=== PATIENT | female | born 1955 | race Caucasian/White ===

== ENCOUNTER 2022-09-05 13:45 | Outpatient (REF) | payer MEDICARE, SELFPAY ==
--- NOTE | ~2022-09-05 | XR_ITS ---
EXAMINATION: XR LUMBOSACRAL SPINE WITH OBLIQUES CLINICAL INFORMATION: Lumbago with sciatica. COMPARISON: None available. TECHNIQUE: AP and lateral (neutral, flexion and extension) views of the lumbar spine and lateral view of the lumbosacral junction. FINDINGS: Vertebral body heights are normal. There is slight upper lumbar levoscoliosis. There has been a prior posterior fusion extending from L2-L3 through L4-L5, with intact posterior fixator rods, pedicular screws and disc spaces. A further disc spacer is seen at L4-L5. There is marked disc space narrowing at L5-S1. No acute fracture or spondylolisthesis is seen. There is multi-level thoracolumbar spondylosis and facet arthropathy. There are abdominal and pelvic surgical clips. XR/XR lumbar spine 4V min IMPRESSION: There is well-maintained alignment status-post L2-L3 through L4-L5 posterior fusions and discectomies. No hardware failure or loosening is seen.
== END 2022-09-05 13:46 | disposition home or self-care (01) ==
LOC: HO.HOSX 13:45
PROVIDERS: PCP Family Medicine; Visit Provider Neurological Surgery
DX: M54.40 Lumbago with sciatica, unspecified side (principal); M43.26 Fusion of spine, lumbar region
CPT/HCPCS: 72110; 99212

== ENCOUNTER 2023-03-07 12:41 | Outpatient (AMB) | payer MEDICARE, SELFPAY ==
--- NOTE | 2023-03-07 12:59 | A.SPINEOV_ITS ---
Intake Intake Visit Reasons: 6 month f/u Intake Note: Mrs. Mccarty is here today for her 6mo follow up. 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 She is 6 months status post minimally invasive L2-3 and L3-4 lumbar fusion for back pain and neurogenic claudication. Her neurogenic claudication symptoms have disappeared. Unfortunately, the back pain persists. I made her aware that back pain caused by spinal stenosis is hard to treat surgically. I will repeat an MRI of the sunday mbar spine to make sure there are no other surgical causes for her ongoing back pain and otherwise I will refer to pain management to see if she is a candidate for a sprint device. The patient will call for the MRI results and subsequent plan. I spent 20 minutes in this consult for preparation, discussing plan of care and ordering MRI. Luis Kaur MD, PhD Spine Fellowship Trained Neurosurgeon Director, [facility] Orders: Orders MR cervical spine wo con Today M43.26 - Fusion of spine, lumbar region Coding Level of Care Code Est Pt Level 3 (49121) Diagnoses Fusion of lumbar spine M43.26 Back pain M54.9
== END 2023-03-07 13:36 | disposition home or self-care (01) ==
PROVIDERS: PCP Family Medicine; Visit Provider Neurological Surgery
DX: M43.26 Fusion of spine, lumbar region (principal); M54.9 Dorsalgia, unspecified
CPT/HCPCS: 99213

== ENCOUNTER → 2023-03-07 12:41 | Outpatient (BNVA) | payer MEDICARE, SELFPAY | PROVIDERS: Visit Provider Neurological Surgery | DX: M43.26 Fusion of spine, lumbar region (principal); M54.9 Dorsalgia, unspecified | CPT/HCPCS: 99212 ==

== ENCOUNTER 2023-04-02 10:46 | Outpatient (AMB) | payer MEDICARE, SELFPAY ==
--- NOTE | 2023-04-02 10:50 | A.OFFVIS_ITS ---
Intake Vital Signs 3 04/02/23 10:51 Height 5 ft 5 in Weight 258 lb BMI 42.9 Blood Pressure Location Lt radial Position Sitting Respiration 12 Pulse Source Pulse Oximeter Oxygen Delivery Method Room Air Intake Visit Reasons: Dorsalgia, unspecified / consider for SPRINT/lvm Intake Note: Pt's BP elevated - she states she is nervous and in pain Allergies simvastatin Adverse Reaction (Intermediate, Verified 04/04/23 14:42) transaminitis oxycodone [From OxyContin] Adverse Reaction (Mild, Verified 04/04/23 14:42) Vomiting Medication List - Last Reconciled 04/02/23 by Sharlene Marin LPN atorvastatin 40 mg PO DAILY flaxseed oil 1,000 mg PO DAILY hydrochlorothiazide 25 mg PO DAILY omeprazole 40 mg PO DAILY HPI Dorsalgia, unspecified / consider for SPRINT/lvm 2 HPI0 Details 67-year-old female who presents today fo r an evaluation of back pain. ? She was referred to us by Dr. Kaur for persistent low back pain following lumbar spine fusion surgery. ? She has had lower back pain since 2005, secondary to the degenerative disk disease. She underwent L2-3, L3-4 lumbar fusion for back pain and neurogenic claudication. Following the surgery or neurogenic claudication, symptoms improved, but unfortunately, the back pain has been persistent. It is described as an aching sensation in her lower back. It is rated at 8/10 in intensity, which is the worst at the end of the day. Prior to her L2-3, L4 fusion, she also underwent an L4-[address] Barriga in 2010. The most recent back surgery was in June 2022. ? She also complains of bilateral knee pain. She describes her pain as an aching, stabbing sensation and rates her pain at 7/10 in intensity. She underwent six weeks of physical therapy at [facility] earlier this year with some relief, but had to be aborted due to increasing knee pain. She also had some relief with massage therapy as well as TENS therapy. She has had cortisone and Synvisc injections for both knees that helped with left knee pain. She has lost about 100 lbs. The patient reports pain when walking from her door to the mail box. She leans on the shopping cart for support during grocery shopping. Review of Systems Const All systems reviewed & are unremarkable except as noted in HPI and below Physical Exam Vital Signs: Last Vital Signs Resp 12 04/02/23 10:51 Oxygen Delivery Method Room Air 04/02/23 10:51 BMI result Body Mass Index 42.9 General: Appears afebrile. Alert and oriented. Mood and affect appropriate. Follows and participates in conversation appropriately. Respiratory effort is unlabored. Able to transition from sit to stand unassisted. Ambulates with bilaterally normal heel strike and toe off. There are multiple well-healed incisions in the lumbar spine from prior OLIF and fusion procedures. There is superficial tenderness to palpation in the L2-3 region in the midline extending towards the left side. There is no particular tenderness on the right side. There is a tenderness towards the medial aspect of the super patellar region on the right knee. In general, there is medial pain on the right knee. Results Reviewed Results Reviewed: 09/05/22: XR LUMBOSACRAL SPINE WITH OBLIQUES FINDINGS: Vertebral body heights are normal. There is slight upper lumbar levoscoliosis. There has been a prior posterior fusion extending from L2-L3 through L4-L5, with intact posterior fixator rods, pedicular screws and disc spaces. A further disc spacer is seen at L4-L5. There is marked disc space narrowing at L5-S1. No acute fracture or spondylolisthesis is seen. There is multi-level thoracolumbar spondylosis and facet arthropathy. There are abdominal and pelvic surgical clips. IMPRESSION: There is well-maintained alignment status-post L2-L3 through L4-L5 posterior fusions and discectomies. No hardware failure or loosening is seen. 03/10/23: MRI scan LUMBAR SPINE Assessment & Plan Assessment & Plan (1) Fusion of lumbar spine: Code(s): M43.26 - Fusion of spine, lumbar region (2) Intractable low back pain: Code(s): M54.59 - Other low back pain Plan 67-year-old female with prior history of lumbar laminectomy infusion now with intractable axial and lower back pain. Discussed temporary nerve stimulator vs. spinal cord stimulator as a possible treatment options. Will schedule her for a left L3 medial branch PNS. Discussed the risks and benefits of the procedure with the patient in detail. All questions were answered. The patient is on board with the plan. Justification for interventional therapy: ? Patient with average pain > 6/10 ? Patient has exhausted conservative therapy ? Patient unable to tolerate physical therapy due to pain Scribed for Dr. Kendrick by Fermín Booth, behavioral medical director, on 04/02/2023. I, Dr. Kendrick, have personally reviewed and agree with the information entered by the scribe. Coding Level of Care Code New Pt Level 4 (94847) Diagnoses Fusion of lumbar spine M43.26 Intractable low back pain M54.59
[2023-04-02 10:51] VITALS: RESP 12; BMI 42.9
== END 2023-04-02 11:24 | disposition home or self-care (01) ==
PROVIDERS: PCP Family Medicine; Referring Provider Physician Assistant; Visit Provider Internal Medicine
DX: M43.26 Fusion of spine, lumbar region (principal); M54.59 Other low back pain
CPT/HCPCS: 99204

== ENCOUNTER → 2023-04-02 10:46 | Outpatient (BNVA) | payer MEDICARE, SELFPAY | PROVIDERS: PCP Family Medicine; Referring Provider Physician Assistant; Visit Provider Internal Medicine | DX: M43.26 Fusion of spine, lumbar region (principal); M54.59 Other low back pain | CPT/HCPCS: 99202 ==

== ENCOUNTER 2023-05-30 06:57 | Day surgery (SDC) | payer MEDICARE, SELFPAY ==
--- NOTE | ~2023-05-30 | FL_ITS ---
EXAMINATION: XR FLUOROSCOPY WITH IMAGES CLINICAL INFORMATION: Left lumbar sprain. COMPARISON: Lumbar 09/05/2022. TECHNIQUE: Fluoroscopy Supervised By: Dr. Kendrick Fluoroscopy Time: 0.5. Cumulative Dose: 15.1 mGy. DAP: 1.72 Gycm2. Images: 3. FINDINGS: There are 3 digital images obtained revealing disc prostheses at the L4-L5 and L3-L4 disc levels. There are bilateral Cr rods, which are not included in the field of view. There is a needle positioned to the left of L5-S1 disc level. FL/FL guidance in OR IMPRESSION: Fluoroscopy was provided to referring physician for pain management. Disc prostheses at L3-L4 and L4-L5 disc levels are noted. Bilateral Cr rods not included in the field of view.
[2023-05-30 07:22] VITALS: BP 144/96; PULSE 100; RESP 18; TEMP 36.1; O2SAT 96; BMI 43.9
[2023-05-30 09:03] VITALS: BP 141/78; PULSE 74; RESP 18; TEMP 36.3; O2SAT 95
--- NOTE | 2023-05-30 09:04 | P.BOP_ITS ---
Brief Operative Note Date of Service: 05/30/23 Pre-op diagnosis: Intractable low back pain Post-op diagnosis: same Procedure: Temporary L5 dorsal ramus stimulator placement, left side Implants: Sprint temporary PNS system Surgeon: Williams Kendrick MD Anesthesia: local Was an Hospitality House Supervisor used for this Procedure?: No Estimated blood loss (mL): 2 Pathology: none sent Condition: stable Disposition: same day
--- NOTE | 2023-05-30 09:04 | MHC.SHP ---
Pre-Procedural Eval Section A Date of Service: 05/30/23 The patient is an INPATIENT: No Changes since office visit: Yes Patient answered all questions The History & Physical has been completed within 30 days and I have reviewed it.: No Section B Chief Complaint: Intractable low back pain Relevant Family History (Specify if Yes): No Relevant Social History: None Present Medications: see Short Stay Collaborative assessment Medical History: No relevant PMH History of Previous Operations: No relevant previous surgery Allergies: Allergies Allergy/AdvReac Type Severity Reaction Status Date / Time simvastatin AdvReac Intermediate transaminit Verified 04/04/23 14:42 is oxycodone [From OxyContin] AdvReac Mild Vomiting Verified 04/04/23 14:42 Review of Systems Sugical H&P ROS: Negative: Constitution, Cardiovascular and Respiratory Exam Surgical H&P Exam: Normal: HEENT, Normal: Heart and Normal: Lungs Plan Diagnosis/Plan: Unchanged I have reviewed the history and physical and performed a pertinent physical examination on my patient. No changes have occurred unless specified. Time Spent With Patient Time: Total time managing care of this patient today ____ minutes.
--- NOTE | 2023-05-30 09:05 | W.PM.OPN ---
Operative Note Operative Note Date of Service: 05/30/23 Narrative: L5 Dorsal Ramus Stimulation Lead Placement, SPR (Sprint) System, Left ? After the risks, benefits and alternatives were discussed with the patient and informed consent was obtained, patient was placed in the prone position and padded to foster comfort. The skin overlying the lumbosacral spine was prepped and draped in sterile fashion. Fluoroscopy was used to identify the spinous process and lamina in the center of the patient?s region of pain. After identifying and marking the intended target along the course of the medial branch nerve, the skin around the planned entry point and the subcutaneous tissues were injected with lidocaine 1%. An introducer needle and stimulating probe were assembled, inserted and advanced along the intended course of the medial branch nerve as it traverses the lamina medial and inferior to the zygapophyseal joint, taking care to maintain the proper depth of insertion as the introducer is advanced under fluoroscopic guidance. The introducer needle was delivered to a location in proximity to the nerve. The L3 medial branch in the L4 medial branch targets were trialed first. Multiple stimulation parameters were used to deliver stimulation to the target medial branch nerve in concert with stimulating at multiple positions around the nerve. The needle was then replaced at the L5 dorsal ramus and multiple stimulation parameters were once again utilized. Nerve target acquisition was confirmed noting generation of paresthesias in the paravertebral regions corresponding to the level being stimulated. Various electrical parameter combinations were tested, and the lead location was adjusted (physically relocated) until the patient indicated paresthesia/muscle tension overlapping the distribution of the patient?s typical region of pain. 100 Hz nerve stimulation frequency was noted to generate a more herbicide service sales representative paresthesia in the patient's typical region of pain. The stimulating probe was removed from the introducer and a percutaneous lead was guided through the needle and delivered to a location in similar proximity to the nerve. Final location was verified with electrical stimulation and documented with fluoroscopy. The introducer needle was removed, and the exposed end of the percutaneous lead was attached to an external stimulator unit. Various electrical parameter combinations were again tested until the patient indicated paresthesia or muscle tension overlapping the distribution of the patient?s typical region of pain. After confirming that lead impedance was in the normal range, the external unit was detached, the needle was removed, and the lead was anchored at the skin. The lead was threaded into the connector block and electrical continuity and desired patient response was confirmed. The connector block was attached to the external stimulator unit. The site was covered with a sterile occlusive dressing. The patient was observed for stability of vital signs and comfort.
== END 2023-05-30 09:28 | disposition home or self-care (01) ==
PROVIDERS: PCP Family Medicine; Visit Provider Internal Medicine
PROC: (CPT 63650; principal; 2023-05-30 08:00)
DX: M54.59 Other low back pain (principal); M43.26 Fusion of spine, lumbar region
CPT/HCPCS: 63650; C1778

== ENCOUNTER → 2023-05-30 06:57 | Outpatient (BNV) | payer MEDICARE, SELFPAY | PROVIDERS: PCP Family Medicine; Visit Provider Internal Medicine | DX: M54.59 Other low back pain (principal) | CPT/HCPCS: 63650; 64555 ==

== ENCOUNTER 2023-06-04 11:14 | Outpatient (AMB) | payer MEDICARE, SELFPAY ==
--- NOTE | 2023-06-04 11:31 | A.OFFVIS_ITS ---
Intake Vital Signs 06/04/23 11:32 Height 5 ft 5 in Weight 263 lb BMI 43.8 BP 180/86 H Blood Pressure Location Lt radial Position Sitting Respiration 12 Pulse 106 H Pulse Source Pulse Oximeter Pulse Oximetry (%) 98 Oxygen Delivery Method Room Air Intake Visit Reasons: s/p Left L3 MB Sprint/lvm Allergies simvastatin Adverse Reaction (Intermediate, Verified 06/04/23 11:33) transaminitis oxycodone [From OxyContin] Adverse Reaction (Mild, Verified 06/04/23 11:33) Vomiting Medication List - Last Reconciled 06/04/23 by Sharlene Marin LPN atorvastatin 40 mg PO DAILY flaxseed oil 1,000 mg PO DAILY hydrochlorothiazide 25 mg PO DAILY omeprazole 40 mg PO DAILY HPI s/p Left L3 MB Sprint/lvm HPI Details 67-year-old female who presents today to the office for a status post left L3 MBB sprint. She has noticed mild improvement in her pain. She has mild sensations for past two days in her back. She has also tried device at 100% setting. She is changing her dressing at home. She denies any itchiness or rash. Past procedures: 05/30/23: L5 Dorsal Ramus Stimulation Le ad Placement, SPR (Sprint) System, Left; mild relief so far. Review of Systems Const All systems reviewed & are unremarkable except as noted in HPI and below Physical Exam Vital Signs: Last Vital Signs Pulse 106 H 06/04/23 11:32 Resp 12 06/04/23 11:32 BP 180/86 H 06/04/23 11:32 Pulse Ox 98 06/04/23 11:32 Oxygen Delivery Method Room Air 06/04/23 11:32 BMI result Body Mass Index 43.8 General: Appears afebrile. Alert and oriented. Mood and affect appropriate. Follows and participates in conversation appropriately. Respiratory effort is unlabored. Able to transition from sit to stand unassisted. Ambulates with bilaterally normal heel strike and toe off. Results Reviewed Results Reviewed: No imaging is available for review. Assessment & Plan Assessment & Plan (1) Intractable low back pain: Code(s): M54.59 - Other low back pain (2) Fusion of lumbar spine: Code(s): M43.26 - Fusion of spine, lumbar region Plan The patient will continue to use the Sprint device. The patient will follow up in seven weeks for the removal of the sprint device. If she is unable to get meaningful benefit from temporary PNS, we will consider spinal cord stimulation implant. Scribed for Dr. Kendrick by Fermín Booth, biomedical engineering director, on 06/04/2023. I, Dr. Kendrick, have personally reviewed and agree with the information entered by the scribe. Coding Level of Care Code Est Pt Level 3 (15684) Diagnoses Intractable low back pain M54.59 Fusion of lumbar spine M43.26
[2023-06-04 11:32] VITALS: BP 180/86; PULSE 106; RESP 12; O2SAT 98; BMI 43.8
== END 2023-06-04 11:48 | disposition home or self-care (01) ==
PROVIDERS: PCP Family Medicine; Visit Provider Internal Medicine
DX: M54.59 Other low back pain (principal); M43.26 Fusion of spine, lumbar region
CPT/HCPCS: 99024

== ENCOUNTER → 2023-06-04 11:14 | Outpatient (BNVA) | payer MEDICARE, SELFPAY | PROVIDERS: PCP Family Medicine; Visit Provider Internal Medicine | DX: M54.59 Other low back pain (principal); M43.26 Fusion of spine, lumbar region | CPT/HCPCS: 99212 ==

== ENCOUNTER 2023-07-27 10:24 | Outpatient (AMB) | payer MEDICARE, SELFPAY ==
--- NOTE | 2023-07-27 10:26 | MHC.OFFVIS ---
Intake Vital Signs 07/27/23 10:28 Height 5 ft 5 in Weight 263 lb BMI 43.8 BP 195/94 H Blood Pressure Location Lt radial Position Sitting Respiration 12 Pulse 108 H Pulse Source Pulse Oximeter Pulse Oximetry (%) 96 Oxygen Delivery Method Room Air Intake Visit Reasons: Sprint removal Intake Note: Pt's BP grossly elevated - Pt states she has white coat syndrome Allergies simvastatin Adverse Reaction (Intermediate, Verified 07/27/23 10:29) transaminitis oxycodone [From OxyContin] Adverse Reaction (Mild, Verified 07/27/23 10:29) Vomiting Medication List - Last Reconciled 07/27/23 by Sharlene Marin LPN atorvastatin 40 mg PO DAILY flaxseed oil 1,000 mg PO DAILY hydrochlorothiazide 25 mg PO DAILY omeprazole 40 mg PO DAILY HPI Sprint removal HPI Details 67-year-old female who presents today to the office for a sprint removal. The patient reports >80% relief following the procedure. She had significant relief from the PNS. She denies any tenderness around the site. She still has mild pain in the mid and right sides. She wants to wait for the other side. She also has severe knee pain and is scheduled for knee surgery in the near future. Past procedures: 05/30/23: L5 Dorsal Ramus Stimulation Lead Placement, SPR (Sprint) System, Left: >80% relief Review of Systems Const All systems reviewed & are unremarkable except as noted in HPI and below Physical Exam Vital Signs: Last Vital Signs Pulse 108 H 07/27/23 10:28 Resp 12 07/27/23 10:28 BP 195/94 H 07/27/23 10:28 Pulse Ox 96 07/27/23 10:28 Oxygen Delivery Method Room Air 07/27/23 10:28 BMI result Body Mass Index 43.8 General: Appears afebrile. Alert and oriented. Mood and affect appropriate. Follows and participates in conversation appropriately. Respiratory effort is unlabored. Able to transition from sit to stand unassisted. Ambulates with bilaterally normal heel strike and toe off. Lead removed with tip intact. Results Reviewed Results Reviewed: No imaging is available for review. Assessment & Plan Assessment & Plan (1) Intractable low back pain: Code(s): M54.59 - Other low back pain Plan The patient had more than 80% pain improvement, but she continues to have some right-sided and mid-back pain. She is scheduled for a potential knee replacement over the summer, so she will follow up with us about repeating the procedure after her knee replacement. Scribed for Dr. Kendrick by Fermín Booth, director biomedical engineering, on 07/27/2023. I, Dr. Kendrick, have personally reviewed and agree with the information entered by the scribe. Coding Level of Care Code Est Pt Level 3 (36108) Diagnoses Intractable low back pain M54.59
[2023-07-27 10:28] VITALS: BP 195/94; PULSE 108; RESP 12; O2SAT 96; BMI 43.8
== END 2023-07-27 10:54 | disposition home or self-care (01) ==
PROVIDERS: PCP Family Medicine; Visit Provider Internal Medicine
DX: M54.59 Other low back pain (principal)
CPT/HCPCS: 99213

== ENCOUNTER → 2023-07-27 10:24 | Outpatient (BNVA) | payer MEDICARE, SELFPAY | PROVIDERS: PCP Family Medicine; Visit Provider Internal Medicine | DX: M54.59 Other low back pain (principal); Z98.890 Other specified postprocedural states | CPT/HCPCS: 99212 ==

== ENCOUNTER 2023-10-22 08:25 | Day surgery (SDC) | payer MEDICARE, SELFPAY ==
[2023-10-17 09:37] VITALS: BMI 44.8
--- NOTE | 2023-10-18 14:16 | P.CONAN_ITS ---
Documented by User: Brunilda Espinoza NP 10/18/23 14:16 HPI - Anesthesia Eval Consult details Narrative: 68yo F for Right Cataract Extraction IOL Insertion No previous cataract on record PMFSH Active Problems Active Problems: All Active Problems Intractable low back pain (Acute) Back pain (Acute) Fusion of lumbar spine (Acute) Back pain of lumbar region with sciatica (Acute) Past Medical History Medical History Obesity Lumbar radiculopathy IBS (irritable bowel syndrome) Low back pain Elevated cholesterol HTN (hypertension) Anxiety GERD (gastroesophageal reflux disease) Surgical History Surgical History History of anal fistulotomy Hx laparoscopic cholecystectomy Hx of dilation and curettage History of back surgery Social History Social History Patient Tobacco Use Status: Never used Tobacco Use of substances other than those prescribed or required for medical reasons: No Advance Directives: No Advance Directives Information Provided: Yes Advance Directives on File: No Meds Allergies Allergy/AdvReac Type Severity Reaction Status Date / Time nabumetone Allergy Intermediate Rash Verified 10/22/23 08:49 simvastatin AdvReac Intermediate transaminit Verified 10/22/23 08:49 is oxycodone [From OxyContin] AdvReac Mild Vomiting Verified 10/22/23 08:49 Home Medications ?Medication ?Instructions ?Recorded ?Confirmed ?Last Taken ?Type atorvastatin 40 mg tablet 40 mg PO DAILY 09/05/22 10/17/23 10/22/23 History hydrochlorothiazide 25 mg tablet 25 mg PO DAILY 09/05/22 10/17/23 10/22/23 History flaxseed oil 1,000 mg capsule 1,000 mg PO DAILY 04/02/23 10/17/23 05/30/23 History omeprazole 20 mg capsule,delayed 20 mg PO DAILY 10/17/23 10/17/23 10/22/23 History release Exam Height,Weight and Vital Signs: Height 5 ft 4.96 in Weight 122.1 kg Assessment and Plan Assessment Anesthesia Assessment: Chart Reviewed Documented by User: Mera Carbone MD 10/22/23 09:27 PMF Past Medical History Medical History Obesity Lumbar radiculopathy IBS (irritable bowel syndrome) Low back pain Elevated cholesterol HTN (hypertension) Anxiety GERD (gastroesophageal reflux disease) Family History Family history of problems with anesthesia: No Surgical History Surgical History History of anal fistulotomy Hx laparoscopic cholecystectomy Hx of dilation and curettage History of back surgery History of Problems with Anesthesia: No Social History Social History Patient Tobacco Use Status: Never used Tobacco Use of substances other than those prescribed or required for medical reasons: No Advance Directives: No Advance Directives Information Provided: Yes Advance Directives on File: No Meds Allergies Allergy/AdvReac Type Severity Reaction Status Date / Time nabumetone Allergy Intermediate Rash Verified 10/22/23 08:49 simvastatin AdvReac Intermediate transaminit Verified 10/22/23 08:49 is oxycodone [From OxyContin] AdvReac Mild Vomiting Verified 10/22/23 08:49 Home Medications ?Medication ?Instructions ?Recorded ?Confirmed ?Last Taken ?Type atorvastatin 40 mg tablet 40 mg PO DAILY 09/05/22 10/17/23 10/22/23 History hydrochlorothiazide 25 mg tablet 25 mg PO DAILY 09/05/22 10/17/23 10/22/23 History flaxseed oil 1,000 mg capsule 1,000 mg PO DAILY 04/02/23 10/17/23 05/30/23 History omeprazole 20 mg capsule,delayed 20 mg PO DAILY 10/17/23 10/17/23 10/22/23 History release Exam Airway Mallampati Class: II TM Dist: >3cm Neck ROM: Full Assessment and Plan Assessment Anesthesia Assessment: Anesthesia Plan Discussed Final Anesthetic Review Family History of Problems with Anesthesia: No History of Problems with Anesthesia: No NPO: Yes ASA Class: III Final Preanesthetic Review: No Changes in Pt Med Stat, Meds/Allgs Chart Revie wed, Consent Obtained/Reviewed and Anes Risks/Benef Reviewed Patient Risk: Intermediate Procedure Risk: Low Anesthetic Plan Anesthetic Plan: MAC: Disposition: Standard PACU
[2023-10-22 08:46] VITALS: BP 150/80; PULSE 98; RESP 18; TEMP 36.6; O2SAT 95
[2023-10-22] MEDS: Lactated Ringers 500 ML 50 ML IV (08:53)
[2023-10-22] MEDS: Tetracaine HCl/PF 0.5% Oph Sol 4 ML DROPS 1 DROP EYE-RIGHT (08:54)
[2023-10-22] MEDS: Tropicamide 1 % Ophth Sol 3 ML BTL 1 DROP EYE-RIGHT ×3 (08:54→09:13)
[2023-10-22] MEDS: Ketorolac Tromethamine 0.5% Op 10 ML DROPS 1 DROP EYE-RIGHT ×3 (08:54→09:14)
[2023-10-22] MEDS: Phenylephrine HCL 2.5% Oph SoL 2 ML BOTTLE 1 DROP EYE-RIGHT ×3 (08:55→09:13)
[2023-10-22] MEDS: Cyclopentolate 1 % Ophth Sol 2 ML DRPBTL 1 DROP EYE-RIGHT ×3 (08:55→09:14)
--- NOTE | 2023-10-22 10:31 | MHC.SHP ---
Pre-Procedural Eval Section A - 24 Hr Update-Section A only Date of Service: 10/22/23 The patient is an INPATIENT: No Changes since office visit: No Cold of Flu in the past 2 weeks, No New Medical Problems, No Changes in Medication and No Patient answered all questions The patient has been examined within 24 hours of the surgical procedure. The History & Physical has been completed within 30 days and I have reviewed it.: Yes Section B - Complete if H&P > 30 days Chief Complaint: Age-related nuclear cataract, right eye Allergies: Allergies Allergy/AdvReac Type Severity Reaction Status Date / Time nabumetone Allergy Intermediate Rash Verified 10/22/23 08:49 simvastatin AdvReac Intermediate transaminit Verified 10/22/23 08:49 is oxycodone [From OxyContin] AdvReac Mild Vomiting Verified 10/22/23 08:49 Plan Diagnosis/Plan: Unchanged I have reviewed the history and physical and performed a pertinent physical examination on my patient. No changes have occurred unless specified. Time Spent With Patient Time: Total time managing care of this patient today ____ minutes.
--- NOTE | 2023-10-22 10:32 | P.PCNO_ITS ---
Ophthalmology Procedure Procedure Date of Service: 10/22/23 Ophthalmology Viscoelastic: Healon Duet Dual Pack Pro Ophthalmology Lenses: IOL Acrysof MP - MA60AC (11.5) Procedure Notes: PREOPERATIVE DIAGNOSIS: Decreased visual acuity right eye secondary to cataract POSTOPERATIVE DIAGNOSIS: Same PROCEDURE: Right cataract extraction with intraocular lens insertion SURGEON: Jorge Hinton M.D. ANESTHESIA: Topical/MAC ESTIMATED BLOOD LOSS: None COMPLICATIONS: None After obtaining informed consent, the patient was brought to the operating room suite and placed in the supine position. After adequate sedation per anesthesia, topical drops of Tetracaine were given to the right eye. The eye was then prepped and draped in the usual sterile fashion. The operating room microscope was then positioned over the operative eye and a lid speculum placed. A paracentesis was created. Viscoelastic was then instilled into the anterior chamber. A three plane incision was then created temporally, utilizing a 2.85 mm keratome. Capsulotomy forceps were then utilized to create a circular tear capsulotomy. Hydrodissection and hydrodelineation were carried out until adequate mobilization of the nucleus occurred. Phacoemulsification was then utilized to remove the dense central nu cleus followed by removal of the cortical material utilizing the automated aspiration irrigation unit. Viscoelastic was instilled into the posterior capsular bag followed by placement of a posterior chamber intraocular lens without difficulty. The residual Viscoelastic was then removed utilizing the automated IA machine. The wound was checked and found to be watertight. The patient tolerated the procedure well and the lid speculum was removed. Intracameral injection of Vigamox 0.1 mL followed by a subtenon injection of Kenalog-40 0.2 mL were administered. The patient will be seen in the a.m.
[2023-10-22 10:58] VITALS: BP 126/76; PULSE 82; RESP 12; TEMP 36.1; O2SAT 97
== END 2023-10-22 11:01 | disposition home or self-care (01) ==
PROVIDERS: PCP Family Medicine; Visit Provider Ophthalmology
PROC: (CPT 66985; principal; 2023-10-22 10:30)
DX: H25.11 Age-related nuclear cataract, right eye (principal); I10 Essential (primary) hypertension; Z88.8 Allergy status to other drugs, medicaments and biological substances
CPT/HCPCS: 66984; J2250; J3301; V2630

== ENCOUNTER 2023-11-05 08:19 | Day surgery (SDC) | payer MEDICARE, SELFPAY ==
[2023-10-17 09:41] VITALS: BMI 44.8
--- NOTE | 2023-11-01 12:10 | HO.ANESPROP2 ---
Documented by User: Brunilda Espinoza NP 11/01/23 12:10 HPI - Anesthesia Eval Consult details Narrative: 68yo F for Left Cataract Extraction IOL Insertion Right eye 10/22/23: Midaz 1 PMFSH Active Problems Active Problems: All Active Problems Intractable low back pain (Acute) Back pain (Acute) Fusion of lumbar spine (Acute) Back pain of lumbar region with sciatica (Acute) Past Medical History Medical History Obesity Lumbar radiculopathy IBS (irritable bowel syndrome) Low back pain Elevated cholesterol HTN (hypertension) Anxiety GERD (gastroesophageal reflux disease) Family History Family history of problems with anesthesia: No Surgical History Surgical History History of anal fistulotomy Hx laparoscopic cholecystectomy Hx of dilation and curettage History of back surgery History of Problems with Anesthesia: No Social History Social History Patient Tobacco Use Status: Never used Tobacco Use of substances other than those prescribed or required for medical reasons: No Advance Directives: No Advance Directives Information Provided: Yes Advance Directives on File: No Meds Allergies Allergy/AdvReac Type Severity Reaction Status Date / Time nabumetone Allergy Intermediate Rash Verified 10/22/23 08:49 simvastatin AdvReac Intermediate transaminit Verified 10/22/23 08:49 is oxycodone [From OxyContin] AdvReac Mild Vomiting Verified 10/22/23 08:49 Home Medications ?Medication ?Instructions ?Recorded ?Confirmed ?Last Taken ?Type atorvastatin 40 mg tablet 40 mg PO DAILY 09/05/22 10/17/23 10/22/23 History hydrochlorothiazide 25 mg tablet 25 mg PO DAILY 09/05/22 10/17/23 10/22/23 History flaxseed oil 1,000 mg capsule 1,000 mg PO DAILY 04/02/23 10/17/23 05/30/23 History omeprazole 20 mg capsule,delayed 20 mg PO DAILY 10/17/23 10/17/23 10/22/23 History release Exam Height,Weight and Vital Signs: Height 5 ft 4.96 in Weight 122.1 kg Assessment and Plan Assessment Anesthesia Assessment: Chart Reviewed Final Anesthetic Review Family History of Problems with Anesthesia: No History of Problems with Anesthesia: No Documented by User: Mera Carbone MD 11/05/23 09:15 PMFSH Past Medical History Medical History Obesity Lumbar radiculopathy IBS (irritable bowel syndrome) Low back pain Elevated cholesterol HTN (hypertension) Anxiety GERD (gastroesophageal reflux disease) Surgical History Surgical History History of anal fistulotomy Hx laparoscopic cholecystectomy Hx of dilation and curettage History of back surgery Social History Social History Patient Tobacco Use Status: Never used Tobacco Use of substances other than those prescribed or required for medical reasons: No Advance Directives: No Advance Directives Information Provided: Yes Advance Directives on File: No Meds Allergies Allergy/AdvReac Type Severity Reaction Status Date / Time nabumetone Allergy Intermediate Rash Verified 10/22/23 08:49 simvastatin AdvReac Intermediate transaminit Verified 10/22/23 08:49 is oxycodone [From OxyContin] AdvReac Mild Vomiting Verified 10/22/23 08:49 Home Medications ?Medication ?Instructions ?Recorded ?Confirmed ?Last Taken ?Type atorvastatin 40 mg tablet 40 mg PO DAILY 09/05/22 10/17/23 10/22/23 History hydrochlorothiazide 25 mg tablet 25 mg PO DAILY 09/05/22 10/17/23 10/22/23 History flaxseed oil 1,000 mg capsule 1,000 mg PO DAILY 04/02/23 10/17/23 05/30/23 History omeprazole 20 mg capsule,delayed 20 mg PO DAILY 10/17/23 10/17/23 10/22/23 History release Exam Airway Mallampati Class: I TM Dist: >3cm Neck ROM: Full Assessment and Plan Assessment Anesthesia Assessment: Anesthesia Plan Discussed Final Anesthetic Review NPO: Yes ASA Class: III Final Preanesthetic Review: No Changes in Pt Med Stat, Meds/Allgs Chart Reviewed, Consent Obtained/Reviewed and Anes Risks/Benef Reviewed Patient Risk: Intermediate Procedure Risk: Low Anesthetic Plan Anesthetic Plan: MAC: Disposition: Standard PACU
[2023-11-05 09:11] VITALS: BP 137/75; PULSE 96; RESP 16; TEMP 36.3; O2SAT 95
[2023-11-05] MEDS: Tetracaine HCl/PF 0.5% Oph Sol 4 ML DROPS 1 DROP EYE-LEFT (09:17)
[2023-11-05] MEDS: Cyclopentolate 1 % Ophth Sol 2 ML DRPBTL 1 DROP EYE-LEFT ×3 (09:18→09:25)
[2023-11-05] MEDS: Tropicamide 1 % Ophth Sol 3 ML BTL 1 DROP EYE-LEFT ×3 (09:19→09:26)
[2023-11-05] MEDS: Ketorolac Tromethamine 0.5% Op 10 ML DROPS 1 DROP EYE-LEFT ×3 (09:20→09:26)
[2023-11-05] MEDS: Phenylephrine HCL 2.5% Oph SoL 2 ML BOTTLE 1 DROP EYE-LEFT ×3 (09:21→09:26)
[2023-11-05] MEDS: Lactated Ringers 500 ML 50 ML IV (09:32)
--- NOTE | 2023-11-05 10:02 | HO.ANESPROP2 ---
[facility] Active Problems Active Problems: All Active Problems (Updated 10/17/23 @ 09:34 by Sobia Wells RN) Intractable low back pain (Acute) Back pain (Acute) Fusion of lumbar spine (Acute) Back pain of lumbar region with sciatica (Acute) Past Medical History Medical History Obesity Lumbar radiculopathy IBS (irritable bowel syndrome) Low back pain Elevated cholesterol HTN (hypertension) Anxiety GERD (gastroesophageal reflux disease) Family History Family history of problems with anesthesia: No Surgical History Surgical History History of anal fistulotomy Hx laparoscopic cholecystectomy Hx of dilation and curettage History of back surgery History of Problems with Anesthesia: No Social History Social History Patient Tobacco Use Status: Never used Tobacco Use of substances other than those prescribed or required for medical reasons: No Advance Directives: No Advance Directives Information Provided: Yes Advance Directives on File: No Meds Allergies Allergy/AdvReac Type Severity Reaction Status Date / Time nabumetone Allergy Intermediate Rash Verified 10/22/23 08:49 simvastatin AdvReac Intermediate transaminit Verified 10/22/23 08:49 is oxycodone [From OxyContin] AdvReac Mild Vomiting Verified 10/22/23 08:49 Active Medications: Current Medications Lactated Ringer's (Lr) 500 mls @ 50 mls/hr IV .Q10H BEKAH Stop: 11/05/23 18:59 Last Admin: 11/05/23 09:32 Dose: 50 mls/hr Povidone Iodine (Povidone Iodine 5 % [facility] Soln 30 Ml Bottle) 1 appl EYE-LEFT PREOP PRN PRN Reason: Pre-Op Surgical Implant Prophy Home Medications ?Medication ?Instructions ?Recorded ?Confirmed ?Last Taken ?Type atorvastatin 40 mg tablet 40 mg PO DAILY 09/05/22 10/17/23 10/22/23 History hydrochlorothiazide 25 mg tablet 25 mg PO DAILY 09/05/22 10/17/23 10/22/23 History flaxseed oil 1,000 mg capsule 1,000 mg PO DAILY 04/02/23 10/17/23 05/30/23 History omeprazole 20 mg capsule,delayed 20 mg PO DAILY 10/17/23 10/17/23 10/22/23 History release Exam Height,Weight and Vital Signs: Height 5 ft 4.96 in Weight 122.1 kg Last Vital Signs Temp 97.3 F 11/05/23 09:11 Pulse 96 11/05/23 09:11 Resp 16 11/05/23 09:11 BP 137/75 11/05/23 09:11 Pulse Ox 95 11/05/23 09:11 O2 Del Method Room Air 11/05/23 09:11 Airway Mallampati Class: II TM Dist: >3cm Neck ROM: Full Assessment and Plan Assessment Anesthesia Assessment: Anesthesia Plan Discussed and Chart Reviewed Final Anesthetic Review Family History of Problems with Anesthesia: No History of Problems with Anesthesia: No NPO: Yes ASA Class: II Final Preanesthetic Review: No Changes in Pt Med Stat, Meds/Allgs Chart Reviewed, Consent Obtained/Reviewed and Anes Risks/Benef Reviewed Patient Risk: Low Procedure Risk: Low Anesthetic Plan Anesthetic Plan: MAC: Disposition: Standard PACU
--- NOTE | 2023-11-05 10:16 | MHC.SHP ---
Pre-Procedural Eval Section A - 24 Hr Update-Section A only Date of Service: 11/05/23 The patient is an INPATIENT: No Changes since office visit: No Cold of Flu in the past 2 weeks, No New Medical Problems, No Changes in Medication and No Patient answered all questions The patient has been examined within 24 hours of the surgical procedure. The History & Physical has been completed within 30 days and I have reviewed it.: Yes Section B - Complete if H&P > 30 days Chief Complaint: Age-related nuclear cataract, left eye Allergies: Allergies Allergy/AdvReac Type Severity Reaction Status Date / Time nabumetone Allergy Intermediate Rash Verified 10/22/23 08:49 simvastatin AdvReac Intermediate transaminit Verified 10/22/23 08:49 is oxycodone [From OxyContin] AdvReac Mild Vomiting Verified 10/22/23 08:49 Plan Diagnosis/Plan: Unchanged I have reviewed the history and physical and performed a pertinent physical examination on my patient. No changes have occurred unless specified. Time Spent With Patient Time: Total time managing care of this patient today ____ minutes.
--- NOTE | 2023-11-05 10:17 | HO.PNOPHT ---
Ophthalmology Procedure Procedure Date of Service: 11/05/23 Ophthalmology Viscoelastic: Healon Duet Dual Pack Pro Ophthalmology Lenses: IOL Acrysof MP - MA60AC (10) Procedure Notes: PREOPERATIVE DIAGNOSIS: Decreased visual acuity left eye secondary to cataract POSTOPERATIVE DIAGNOSIS: Same PROCEDURE: Left cataract extraction with intraocular lens insertion SURGEON: Jorge Hinotn M.D. ANESTHESIA: Topical/MAC ESTIMATED BLOOD LOSS: None COMPLICATIONS: None After obtaining informed consent, the patient was brought to the operation room suite and placed in the supine position. After adequate sedation per anesthesia, topical drops of Tetracaine were given to the left eye. The eye was then prepped and draped in the usual sterile fashion. The operating room microscope was then positioned over the operative eye and a lid speculum placed. A paracentesis was created. Viscoelastic was then instilled into the anterior chamber. A three plane incision was then created temporally, utilizing a 2.85 mm keratome. Capsulotomy forceps were then utilized to create a circular tear capsulotomy. Hydrodissection and hydrodelineation were carried out until adequate mobilization of the nucleus occurred. Phacoemulsification was then utilized to remove the dense central nucleus followed by removal of the cortical material utilizing the automated aspiration irrigation unit. Viscoat elastic was instilled into the posterior capsular bag followed by placement of a posterior chamber intraocular lens without difficulty. The residual Viscoat elastic was then removed utilizing the automated IA machine. The wound was check and found to be watertight. The patient tolerated the procedure well and the lid speculum was removed. Intracameral injection of Vigamox 0.1 mL followed by a subtenon injection of Kenalog-40 0.2 mL were administered. The patient will be seen in the a.m.
[2023-11-05 10:44] VITALS: BP 135/80; PULSE 81; RESP 16; TEMP 36.1; O2SAT 96
== END 2023-11-05 10:58 | disposition home or self-care (01) ==
PROVIDERS: PCP Family Medicine; Visit Provider Ophthalmology
PROC: (CPT 66985; principal; 2023-11-05 10:00)
DX: H25.12 Age-related nuclear cataract, left eye (principal); Z83.511 Family history of glaucoma; H54.7 Unspecified visual loss; H18.413 Arcus senilis, bilateral; H43.399 Other vitreous opacities, unspecified eye; I10 Essential (primary) hypertension; Z79.899 Other long term (current) drug therapy; Z88.8 Allergy status to other drugs, medicaments and biological substances; Z98.890 Other specified postprocedural states
CPT/HCPCS: 66984; J2250; J3301; V2630